=== PATIENT | male | born 1990 | race Caucasian/White ===

== ENCOUNTER 2017-08-26 01:57 | Emergency (ER) | payer SELFPAY ==
[2017-08-26] MEDS ORDERED: IBUPROFEN 200 MG TABLET PO ONE (02:21)
--- NOTE | 2017-08-26 02:57 | Diagnostic Imaging Report ---
ESTEFANI KRUEGER (ELECTRIC WELDER) - ER [facility] [id number] [id number] Report Submission Date: August 26, 2017 2:49:36 AM CDT Patient Study Name: CHIQUI DUQUE Date: August 26, 2017 2:25:29 AM CDT Modality Type: DX Gender: M Description: SHOULDER : 89 Institution: [facility] Physician: ESTEFANI KRUEGER (ELECTRIC WELDER) - ER Bilateral shoulders 3 views History: Pain Findings: The bilateral shoulders are unremarkable without fracture, dislocation , arthropathy, or focal bone lesion. Electronically signed on August 26, 2017 2:49:36 AM CDT by: Emil SILVA
--- NOTE | 2017-08-26 03:02 | ED Physician Documentation ---
General Adult - HISTORIAN Historian: patient - HPI Stated Complaint: Bilateral shoulder pain Chief Complaint: General Adult Further Comments: yes (26 year old male patient brought in by PD for evaluation of shoulder complaints. No trauma. C/O pain related to hand cuffs. Patient under arrest for hitting [employer].) - ROS CONST: no problems EYES/ENT: none CVS/RESP: none GI/: none MS/SKIN/LYMPH: none - PAST HX Past History: none Other History: none Surgeries/Procedures: none Allergies/Adverse Reactions: Allergies Allergy/AdvReac Type Severity Reaction Status Date / Time Penicillins Allergy Unknown Verified 08/26/17 02:10 Home Medications: Ambulatory Orders Medication Instructions Recorded NK [NK] 08/26/17 - SOCIAL HX Smoking History: cigarettes - FAMILY HX Family History: No - VITAL SIGNS Vital Signs: Vital Signs Temp Pulse Resp BP Pulse Ox 110 H 20 119/67 96 08/26/17 02:00 08/26/17 02:00 08/26/17 02:00 08/26/17 02:00 - REVIEWED ASSESSMENTS Nursing Assessment Reviewed: Yes Vitals Reviewed: Yes ED Results Lab/Radiology - Orders Orders: ED Orders Category Date Time Status BILAT SHOULDERS 2-3 VIEW [RAD] Stat Exams 08/26/17 Completed Ibuprofen [Advil] Med 08/26/17 02:21 Discontinued 600 mg PO NOW ONE General Adult Physical Exam - PHYSICAL EXAM GENERAL APPEARANCE: [id number] N EENT: eye inspection normal, TERE RESPIRATORY: no resp distress CVS: reg rate & rhythm, heart sounds normal, equal pulses, no murmur, no gallop , PMI nml, no JVD, no friction rub, 24 ABDOMEN: soft, no organomegaly, normal bowel sounds, no abdominal bruit, no distension SKIN: normal color, warm/dry, NR, INT, PAL, DR EXTREMITIES: non-tender, normal range of motion, no evidence of injury, no edema , J, PEDIATRIC MEDICAL ASSISTANT NEURO: oriented X3, motor nml, sensation nml, mood/affect nml Discharge Clincal Impression: Normal exam Condition: Stable Disposition: 01 HOME, SELF-CARE Decision to Admit: NO Decision Time: 03:04
[2017-08-26 03:05] VITALS: BP 123/73
== END 2017-08-26 03:00 | disposition home or self-care (01) ==
LOC: ED 01:57
DX: M25.512 Pain in left shoulder (principal); M25.511 Pain in right shoulder
CPT/HCPCS: 99283